=== PATIENT | female | born 1985 | race Caucasian/White ===

== ENCOUNTER 2018-04-22 08:22 | Emergency (ER) | payer MEDICAID ==
[~2018-04-22] VITALS: Ht 172.7 cm; Wt 59.0 kg
[2018-04-22 08:22] VITALS: BP_SYST 119
[2018-04-22 09:38] VITALS: BP_SYST 119
== END 2018-04-22 09:38 | disposition home or self-care (01) ==
LOC: SED 08:22
DX: M65.4 Radial styloid tenosynovitis [de Quervain] (principal); Z88.0 Allergy status to penicillin
CPT/HCPCS: 99284